=== PATIENT | male | born 1990 | race Caucasian/White ===

== ENCOUNTER 2016-08-20 02:26 | Emergency (ER) | payer MEDICAID ==
[2016-08-20 02:43] VITALS: BP 153/84
--- NOTE | 2016-08-20 03:18 | EDM.PDOC ---
[id number] PAIN Time Seen by Provider: 08/20/16 02:50 Source of Information: Reports: Patient History Limitations: Reports: No Limitations - History of Present Illness INITIAL COMMENTS - FREE TEXT/NARRATIVE: 25-year-old male with left-sided mandible pain he thinks secondary to some leftover hardware from the mandible repair several years ago. No new trauma. No fever or swelling. Onset: Gradual (Worsening over the last several days) Location: Reports: Face Worsens with: Reports: Movement Associated Symptoms: Reports: No Other Symptoms Tooth/Teeth Pain Score (Numeric/FACES): 7 - Related Data Allergies Allergy/AdvReac Type Severity Reaction Status Date / Time No Known Allergies Allergy Verified 08/20/16 02:41 Home Meds: Home Meds NK [No Known Home Meds] 08/20/16 [History] Past Medical History Cardiovascular History: Reports: Heart Murmur Musculoskeletal History: Reports: Other (See Below) Other Musculoskeletal History: Jaw Fx ankle Neurological History: Reports: Concussion Psychiatric History: Reports: ADD, ADHD, Bipolar, Depression, PTSD - Infectious Disease History Infectious Disease History: Reports: Chicken Pox - Past Surgical History HEENT Surgical History: Reports: Other (See Below) Other HEENT Surgeries/Procedures: Jaw surgery a few years ago. Social & Family History - Tobacco Use Smoking Status *Q: Current Every Day Smoker Years of Tobacco use: 18 Packs/Tins Daily: 1.5 Used Tobacco, but Quit: No Second Hand Smoke Exposure: Yes - Caffeine Use Caffeine Use: Reports: Coffee, Soda - Alcohol Use Days Per Week of Alcohol Use: 0 - Recreational Drug Use Recreational Drug Use: Yes Recreational Drug Type: Reports: Marijuana/Hashish Recreational Drug Use Frequency: Weekly ED ROS ENT - Review of Systems Review Of Systems: See Below Constitutional: Denies: Fever, Chills Respiratory: Denies: Shortness of Breath GI/Abdominal: Denies: Abdominal Pain, Nausea, Vomiting Neurological: Denies: Headache ED EXAM, ENT - Physical Exam Exam: See Below Exam Limited By: No Limitations General Appearance: Alert, No Apparent Distress (Looks uncomfortable but not distressed) Mouth/Throat: Other (Patient has a small [id number] piece of metal lateral to the mandibular posterior molars on the right side. No redness in the area but tender to palpation) Course - Vital Signs Last Recorded V/S: Last Vital Signs Temp 97.9 F 08/20/16 02:48 Pulse 100 08/20/16 02:48 Resp 18 08/20/16 02:48 BP 153/84 H 08/20/16 02:48 Pulse Ox 97 08/20/16 02:48 - Re-Assessments/Exams Free Text/Narrative Re-Assessment/Exam: 08/20/16 03:07 This patient needs to see a maxillofacial specialist or dentist to assess whether this needs any treatment such as removal. He was started on penicillin to cover any underlying infection and given 10 hydrocodone for pain control. He can also take a regular dose of ibuprofen or naproxen. Departure - Departure Time of Disposition: 03:33 Disposition: Home, Self-Care 01 Condition: Good Clinical Impression: Pain, dental - Discharge Information Instructions: Tooth Injuries, [id number] Referrals: PCP,None [Primary Care Provider] - Forms: ED Department Discharge Care Plan Goals: Take antibiotic as prescribed, also take a regular dose of ibuprofen or naproxen and add stronger pain medications as needed. Work in to the dental clinic on Friday as discussed.
== END 2016-08-20 03:33 | disposition home or self-care (01) ==
LOC: JP.ED 02:26
DX: K08.89 Other specified disorders of teeth and supporting structures (principal); F17.210 Nicotine dependence, cigarettes, uncomplicated; Z98.890 Other specified postprocedural states
CPT/HCPCS: 99283